=== PATIENT | male | born 1965 | race Caucasian/White ===

== ENCOUNTER 2020-03-04 12:25 | Emergency (ER) | payer BC ==
[~2020-03-04] VITALS: Ht 182.9 cm; Wt 74.8 kg
[2020-03-04 12:45] VITALS: BP 142/86
--- NOTE | 2020-03-04 12:45 | NUR ---
ED Nurse Note: Pt walked in from home c/o mid abdominal pain that radiates to back. Pt denies fever/n/v/d. Hx of kidney stones. Respirations even and unlabored on room air. Vitals stable as documented.
[2020-03-04] MEDS ORDERED: Lidocaine 2% Visc 15ml soln ORAL ONE (13:15)
[2020-03-04] MEDS ORDERED: Mylanta II UD 30ml ORAL ONE (13:15)
[2020-03-04] MEDS ORDERED: Dicyclomine HCl 10mg/5ml oral soln ORAL ONE (13:15)
[2020-03-04 13:58] LABS: ANION GAP 7 mmol/L (5-15); BLOOD UREA NITROGEN 21 mg/dL (7-18); CALCIUM 8.7 MG/DL (8.5-10.1); CARBON DIOXIDE 29 MMOL/L (21-32); CHLORIDE 106 MMOL/L (98-107); CREATININE 1.1 MG/DL (0.55-1.30); POTASSIUM 4.6 MMOL/L (3.5-5.1); SODIUM 142 MMOL/L (136-145)
[2020-03-04 13:59] LABS: BASOPHILS % (AUTO) 0.9 % (0.0-2.0); EOSINOPHILS % (AUTO) 1.7 % (0.0-3.0); HEMATOCRIT 41.1 % (42.0-52.0); HEMOGLOBIN 14.8 G/DL (14.2-18.0); LYMPHOCYTES % (AUTO) 16.2 % (20.0-45.0); MEAN CORPUSCULAR VOLUME 91 FL (80-99); MONOCYTES % (AUTO) 7.4 % (1.0-10.0); NEUTROPHILS % (AUTO) 73.7 % (45.0-75.0); PLATELET COUNT 193 K/UL (150-450); RED CELL DISTRIBUTION WIDTH 10.5 % (11.6-14.8); WHITE BLOOD COUNT 7.9 K/UL (4.8-10.8)
[2020-03-04 14:03] LABS: ALANINE AMINOTRANSFERASE 22 U/L (12-78); ALBUMIN 3.8 G/DL (3.4-5.0); ALBUMIN/GLOBULIN RATIO 1.3 (1.0-2.7); ALKALINE PHOSPHATASE 34 U/L (46-116); ASPARTATE AMINO TRANSFERASE 17 U/L (15-37); BILIRUBIN,TOTAL 0.4 MG/DL (0.2-1.0)
[2020-03-04 14:12] LABS: APPEARANCE,URINE CLEAR; BILIRUBIN, URINE NEGATIVE (NEGATIVE); COLOR,URINE PALE YELLOW; GLUCOSE, URINE (UA) NEGATIVE (NEGATIVE); KETONES,URINE NEGATIVE (NEGATIVE); LEUKOCYTE ESTERASE ,URINE NEGATIVE (NEGATIVE); NITRITE,URINE NEGATIVE (NEGATIVE); PH,URINE 6.5 (4.5-8.0); PROTEIN,URINE NEGATIVE (NEGATIVE); UROBILINOGEN,URINE NORMAL MG/DL (0.0-1.0)
[2020-03-04] MEDS ORDERED: FAMOTIDINE20 MG ORAL (14:40)
[2020-03-04 14:46] VITALS: BP 143/76
--- NOTE | 2020-03-04 14:46 | NUR ---
ER DISCHARGE NOTE: Patient is cleared to be discharged per ERMD, pt is aox4, on room air, with stable vital signs. pt was given dc and prescription instructions, pt was able to verbalize understanding, pt id band and iv site removed without complications. pt is able to ambulate with steady gait. pt took all belongings.
--- NOTE | 2020-03-04 15:00 | Diagnostic Imaging Report ---
EXAM: ULTRASOUND US ABD Complete CLINICAL HISTORY: Reason For Exam: ABD PAIN. COMPARISON: CT abdomen and pelvis 07/29/2014 TECHNIQUE: Ultrasound examination of the abdomen includes grayscale images, and color and spectral doppler analysis. FINDINGS: The liver and spleen are homogeneous. The gallbladder is without sludge or stone. Common bile duct measures 5 mm. The pancreas is unremarkable to the extent visualized. No hydronephrosis seen bilaterally. Aorta and cava are within normal limits. IMPRESSION: NO SIGN OF ACUTE DISEASE.
--- NOTE | 2020-03-04 15:12 | Emergency Room Report ---
History of Present Illness General Chief Complaint: Abdominal Pain Source: Patient Present Illness HPI 54-year-old male presents with abdominal pain. Started yesterday. Pain is epigastric, dull, 4 out of 10, nonradiating. Denies fevers or chills. Denies nausea or vomiting. Notes history of kidney stones. Denies flank pain. No other aggravating relieving factors. Denies any other associated symptoms Allergies: Coded Allergies: No Known Allergies (Unverified , 07/29/14) COVID-19 Screening Contact w/high risk pt: No Recent Travel to affected area: No Experienced COVID-19 symptoms?: No COVID-19 Testing performed DISTRICT ADVISER: No COVID-19 Testing Source: negative covid antibdy test Patient History Past Medical History: none Past Surgical History: none Pertinent Family History: none Social History: Denies: smoking, alcohol use, drug use Immunizations: UTD Reviewed Nursing Documentation: PMH: Agreed; PSxH: Agreed Nursing Documentation-PMH Past Medical History: No Stated History Review of Systems All Other Systems: negative except mentioned in HPI Physical Exam Vital Signs Date Time Temp Pulse Resp B/P (MAP) Pulse Ox O2 Delivery O2 Flow Rate FiO2 03/04/20 12:32 98.1 68 20 144/83 (103) 97 Room Air Sp02 EP Interpretation: reviewed, normal General Appearance: no apparent distress, alert, GCS 15, non-toxic Head: normocephalic, atraumatic Eyes: bilateral eye normal inspection, bilateral eye PERRL ENT: hearing grossly normal, normal pharynx, no angioedema, normal voice Neck: full range of motion, supple/symm/no masses Respiratory: chest non-tender, lungs clear, normal breath sounds, speaking full sentences Cardiovascular #1: regular rate, rhythm, no edema Cardiovascular #2: 2+ carotid (R), 2+ carotid (L), 2+ radial (R), 2+ radial (L) , 2+ dorsalis pedis (R), 2+ dorsalis pedis (L) Gastrointestinal: normal bowel sounds, soft, non-distended, no guarding, no rebound, tenderness - epigastric Rectal: deferred Genitourinary: normal inspection, no CVA tenderness Musculoskeletal: back normal, normal range of motion, gait/station normal, non- tender Neurologic: alert, motor strength/tone normal, oriented x3, sensory intact, responsive, speech normal Psychiatric: judgement/insight normal, memory normal, mood/affect normal, no suicidal/homicidal ideation Reflexes: 3+ bicep (R), 3+ bicep (L), 3+ tricep (R), 3+ tricep (L), 3+ knee (R) , 3+ knee (L) Lymphatic: no adenopathy Medical Decision Making Diagnostic Impression: Primary Impression: Abdominal pain Qualified Codes: R10.13 - Epigastric pain ER Course Hospital Course 54-year-old M presents to ED with abdominal pain Differential diagnosis includes-appendicitis, cholecystitis, small bowel obstruction, gastritis, Clinical course Patient placed on stretcher. After initial history and physical I ordered labs , IV fluids, pepcid, GI cocktail and US Labs - no leukocytosis, electrolytes ok, LFTs normal, UA unremarkable ABD US - unremarkable Upon reassessment, patient states pain has improved. I discussed findings with patient. Labs unremarkable. Abdomen soft with no guarding or rebound. Ultrasound shows no acute process. Consideration for gastritis. Safe for discharge with close outpatient follow- up. States he has a PMD I feel this is a highly complex case requiring extensive working including EKG/ Rhythm strip, Xray/CT/US, Blood/urine lab work, repeat exams while in ED, and administration of strong opiates/narcotics for pain control, admission to hospital or close patient follow up. Diagnosis - abdominal pain Stable and discharged to home with Rx Pepcid. Followup with PMD. Return to ED if symptoms recur or worsen Labs Test 03/04/20 12:45 03/04/20 13:15 Urine Color Pale yellow Urine Appearance Clear Urine pH 6.5 (4.5-8.0) Urine Specific [place] 1.015 (1.005-1.035) Urine Protein Negative (NEGATIVE) Urine Glucose (UA) Negative (NEGATIVE) Urine Ketones Negative (NEGATIVE) Urine Blood Negative (NEGATIVE) Urine Nitrite Negative (NEGATIVE) Urine Bilirubin Negative (NEGATIVE) Urine Urobilinogen Normal MG/DL (0.0-1.0) Urine Leukocyte Esterase Negative (NEGATIVE) White Blood Count 7.9 K/UL (4.8-10.8) Red Blood Count 4.50 M/UL (4.70-6.10) Hemoglobin 14.8 G/DL (14.2-18.0) Hematocrit 41.1 % (42.0-52.0) Mean Corpuscular Volume 91 FL (80-99) Mean Corpuscular Hemoglobin 32.8 PG (27.0-31.0) Mean Corpuscular Hemoglobin Concent 36.0 G/DL (32.0-36.0) Red Cell Distribution Width 10.5 % (11.6-14.8) Platelet Count 193 K/UL (150-450) Mean Platelet Volume 5.1 FL (6.5-10.1) Neutrophils (%) (Auto) 73.7 % (45.0-75.0) Lymphocytes (%) (Auto) 16.2 % (20.0-45.0) Monocytes (%) (Auto) 7.4 % (1.0-10.0) Eosinophils (%) (Auto) 1.7 % (0.0-3.0) Basophils (%) (Auto) 0.9 % (0.0-2.0) Sodium Level 142 MMOL/L (136-145) Potassium Level 4.6 MMOL/L (3.5-5.1) Chloride Level 106 MMOL/L (98-107) Carbon Dioxide Level 29 MMOL/L (21-32) Anion Gap 7 mmol/L (5-15) Blood Urea Nitrogen 21 mg/dL (7-18) Creatinine 1.1 MG/DL (0.55-1.30) Estimat Glomerular Filtration Rate > 60 mL/min (>60) Glucose Level 98 MG/DL (74-106) Calcium Level 8.7 MG/DL (8.5-10.1) Total Bilirubin 0.4 MG/DL (0.2-1.0) Aspartate Amino Transf (AST/SGOT) 17 U/L (15-37) Alanine Aminotransferase (ALT/SGPT) 22 U/L (12-78) Alkaline Phosphatase 34 U/L (46-116) Total Protein 6.7 G/DL (6.4-8.2) Albumin 3.8 G/DL (3.4-5.0) Globulin 2.9 g/dL Albumin/Globulin Ratio 1.3 (1.0-2.7) Lipase 205 U/L (73-393) CT/MRI/US Diagnostic Results CT/MRI/US Diagnostic Results : Imaging Test Ordered: ABD US Impression CLINICAL HISTORY: Reason For Exam: ABD PAIN. COMPARISON: CT abdomen and pelvis 07/29/2014 TECHNIQUE: Ultrasound examination of the abdomen includes grayscale images, and color and spectral doppler analysis. FINDINGS: The liver and spleen are homogeneous. The gallbladder is without sludge or stone. Common bile duct measures 5 mm. The pancreas is unremarkable to the extent visualized. No hydronephrosis seen bilaterally. Aorta and cava are within normal limits. IMPRESSION: NO SIGN OF ACUTE DISEASE. Last Vital Signs Date Time Temp Pulse Resp B/P (MAP) Pulse Ox O2 Delivery O2 Flow Rate FiO2 03/04/20 14:46 98.2 74 20 143/76 97 Room Air Status: improved Disposition: HOME, SELF-CARE Condition: Stable Scripts Famotidine* (Pepcid 20mg tablet*) 20 Mg Tablet 20 MG ORAL DAILY, #30 TAB 0 Refills Prov: Sergey Lynch MD 03/04/20 Patient Instructions: Gastritis, Adult, [id number] Sergey Lynch MD March 04, 2020 15:12
== END 2020-03-04 14:46 | disposition home or self-care (01) ==
LOC: EMR 12:50
DX: R10.13 Epigastric pain (principal); Z87.442 Personal history of urinary calculi
CPT/HCPCS: 36415; 76700; 80053; 81003; 83690; 85025; 96374; 99284; J7040; S0028

== ENCOUNTER 2020-10-05 14:43 | Emergency (ER) | payer BC ==
[~2020-10-05] VITALS: Ht 182.9 cm; Wt 73.9 kg
[~2020-10-05 14:43] MED LIST: FAMOTIDINE20 MG ORAL
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
[2020-10-05] MEDS ORDERED: Hydrogen Peroxide 473ml Bottle TOPIC ONE ×2 (15:02→15:15)
[2020-10-05 15:04] VITALS: BP 115/55
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
[2020-10-05] MEDS ORDERED: AUGMENTIN 875-1 EAC1 ORAL (15:05)
[2020-10-05] MEDS ORDERED: ANTIBIOTIC28.4 GM TP (15:12)
[2020-10-05] MEDS ORDERED: Bacitracin Oint UD TOPIC ONE (15:15)
[2020-10-05 15:25] VITALS: BP 118/62
--- NOTE | 2020-10-05 15:25 | NUR ---
ER DISCHARGE NOTE: Patient is cleared to be discharged per ERMD, pt is aox4, on room air, with stable vital signs. pt was given dc and prescription instructions, pt was able to verbalize understanding, pt id band removed. pt is able to ambulate with steady gait. pt took all belongings.
== END 2020-10-05 15:25 | disposition home or self-care (01) ==
LOC: EMR 14:55
DX: S00.01XA Abrasion of scalp, initial encounter (principal); S80.812A Abrasion, left lower leg, initial encounter; S60.512A Abrasion of left hand, initial encounter; S60.511A Abrasion of right hand, initial encounter; Y04.0XXA Assault by unarmed brawl or fight, initial encounter; Y92.9 Unspecified place or not applicable
CPT/HCPCS: 99282